=== PATIENT | male | born 1980 | race Caucasian/White ===

== ENCOUNTER 2020-08-01 00:17 | Outpatient (CLI) | payer BC, SELFPAY ==
[2020-08-02 00:20] LABS: SARS-CoV-2 RNA PCR Negative
== END 2020-08-01 00:18 | disposition home or self-care (01) ==
LOC: ANHCOVIDDT 00:18
PROVIDERS: PCP Family Medicine; Visit Provider Plastic Surgery
DX: Z01.812 Encounter for preprocedural laboratory examination (principal); Z20.822 Contact with and (suspected) exposure to COVID-19
CPT/HCPCS: C9803; U0003; U0005

== ENCOUNTER 2020-08-05 00:40 | Day surgery (SDC) | payer BC, SELFPAY ==
[2020-07-29 09:20] VITALS: BMI 27.3
[2020-08-05] VITALS (9 sets, daily range): BP systolic 122–141; BP diastolic 61–95; PULSE 75–98; RESP 12–20; TEMP 36.2–36.6; O2SAT 96–100
--- NOTE | ~2020-08-05 | NM_ITS ---
EXAMINATION: NM sentinel node w imaging EXAM DATE: 08/05/2020 08:16 INDICATION: Left upper arm melanoma. TECHNIQUE: 0.5 mCi Tc-99m Lymphoseek was injected in 4 aliquots immediately surrounding the left uppe r arm melanoma site. Planar images were obtained. IMPRESSION: [place] lymph node was identified in the left axilla, and this overlying region was ankit ed by the technologist. IMPRESSION: Left axillary sentinel lymph node identified. Reviewed, dictated and finalized at location A. TEACHER IMPRESSION: [place] lymph node was identified in the left axilla, and this ove rlying region was marked by the technologist.
[2020-08-05] MEDS: LACTATED RINGERS 1,000 ML 30 ML IV CONT (07:00)
--- NOTE | 2020-08-05 07:17 | WPDHPUPDATE1 ---
History and Physical Update Update Date/Time: 08/05/20 07:17 History and Physical has been reviewed, including an updated exam of the patient. There are NO changes in the patient's condition. Risks, benefits, and alternatives have been discussed and questions answered. Patient agrees to proceed with procedure.
--- NOTE | 2020-08-05 07:52 | SUR.PREOP ---
0710-PT TO NUCLEAR MEDICINE PER W/C.
--- NOTE | 2020-08-05 08:07 | SUR.PREOP ---
0800-RETURNED FROM NUCLEAR MEDICINE.
--- NOTE | 2020-08-05 08:11 | WPDANESEPPF ---
Anes - Initial Pre Proc Eval Procedure: Operation Date: 08/05/20 08:30 Proposed Procedures p Excision Melanoma Left Upper Arm with Martin Lymph Node Biopsy - Moody Steel MD Date/Time: 08/05/20 08:11 Surgeon: Moody Steel MD Pre Op Diagnosis: malignant melanoma left upper arm Patient Data Age: 39 Gender: M Height: 5 ft 11 in Weight: 88.6 kg Last Vital Signs Temp 97.2 F L 08/05/20 06:40 Pulse 98 08/05/20 06:40 Resp 20 08/05/20 06:40 BP 129/87 08/05/20 06:40 Pulse Ox 96 08/05/20 06:40 Allergies Allergy/AdvReac Type Severity Reaction Status Date / Time No Known Allergies Allergy Verified 08/05/20 06:53 Home Medications Medication Instructions Recorded Confirmed Type No Home Medications 03/02/20 08/05/20 History Patient hx anesthesia problems: none Family hx anesthesia problems: none [facility] Past Medical History Medical History (Updated 08/05/20 @ 08:10 by Ej Schmidt MD) Malignant melanoma of left upper arm Social History Social History (Updated 06/22/20 @ 11:01 by Keily Swift RN) Smoking packs per day: 0.5 Smoking cigarettes per day: 10.0 Years smoked: 8 Smoking pack-years: 4.00 Smoking status: Current every day smoker Tobacco type: cigarettes Alcohol intake: current Substance use: never Substance use type: does not use Living arrangements: with family Spiritual care concerns: No Anes - Eval Final PreProcedure Day of Procedure 08/05/20 08:11 Patient weight: overweight Heart: regular rate and rhythm Lungs: clear to auscultation Airway: Mallampati scale class II Neurological: alert and oriented Last oral intake: >/= 8 hours ASA classification: II Emergent: no Anesthetic plan: proceed Anesthesia type and monitoring: general LMA and standard monitoring Informed Consent: The patient's anesthetic plan and its attendant risks and benefits were discussed with the patient/family/POA. Questions were solicited and answers provided to the satisfaction of the patient/family/POA.
--- NOTE | 2020-08-05 08:19 | PM.OP ---
Procedure Note - Brief Procedure Note - Brief Date of procedure: 08/05/20 Pre-op diagnosis: malignant melanoma left upper arm Post-op diagnosis: same Procedure performed: Wide excision of melanoma (B. 0.9 mm) left upper arm with intermediate repair 9 cm and sentinel lymph node biopsy. Anesthesia: GLMA Surgeon: Moody Steel MD Entry Level: jimbo Estimated blood loss (mL): 5 Tourniquet time (min): 0 Drains: No Packing: No Pathology: yes Complications: No immediate complications Condition: stable Disposition: same day
[2020-08-05] MEDS: LIDO 1%/EPINEPHRINE 1:100,000 50 ML VIAL 10 ML INFILTRATE (08:24)
--- NOTE | 2020-08-05 09:08 | SUR.OPER ---
Left axillary sentinel lymph node sent fresh for permanent with KHANH Patel and received in pathology by Lexii
--- NOTE | 2020-08-05 09:16 | SUR.OPER ---
Left upper arm melanoma sent fresh with KHANH Patel and received in pathology by Lexii.
--- NOTE | 2020-08-05 09:46 | P.OP_ITS ---
Procedure Note - Detailed Date of procedure: 08/05/20 Pre-op diagnosis: malignant melanoma left upper arm Post-op diagnosis: same Procedure performed: 3 cm wide excision of malignant melanoma B[place]low thickness 0.9 mm left upper arm with intermediate repair 9 cm. [place] lymph node biopsy the left axilla Description of procedure: The patient was sent to nuclear medicine this morning. The single left axillary lymph node was identified. He was returned to the holding area where the melanoma site on the left upper arm was marked and the marking in the left axilla from nuclear Medicine was noted. He was rolled to the operating room were he was placed supine on the operating table. A time-out was held and confirmed. He was given general anesthesia with an LMA. The left upper chest, shoulder and left arm were prepped and draped in usual fashion. The probe was brought up and the site generally identified to be under the pectoralis muscle. The previous biopsy site on the biceps was marked with a 1 cm margin around any aspect of the scar. This area was widely infiltrated with 1% lidocaine with epinephrine. Attention was then turned to the left axilla and the incision made radially. The dissection was carried through the subcutaneous tissue to the axillary fascia. This was incised. The target lymph node was easily identified with the probe. The dissection was carried bluntly through the axillary fat pad exposing the lymph node. This was pink and light vora and approximately 1 to 1/2 cm in diameter. It was carefully dissected until a couple of sites were divided between vessel clips and the lymph node was removed. There was no bleeding. Other bleeding points from the dissection were cauterized. The wound was closed with 3-0 Vicryl suture in the superficial fascia and dermis. The skin was closed with a running intradermal 3-0 Monocryl. The lesion from the forearm was taken off with a full-thickness excision as marked. This was taken off down to the fascia however a large traversing vein was left intact. No cutaneous nerves were identified. The wound margins were elevated off the deep fascia with digital dissection. The wound closed easily with the 3-0 Vicryl in the superficial fascia and dermis. The skin was closed with a running intradermal 3-0 Monocryl. Light dressings were applied ant the patient was extubated and transported to the recovery room in stable condition. Anesthesia: GLMA Surgeon: Moody Steel MD Admissions Counselor: Robert Estimated blood loss (mL): 5 Tourniquet time (min): 0 Drains: No Packing: No Pathology: yes Complications: No immediate complications Condition: stable Disposition: same day
[2020-08-05] MEDS: oxyCODONE HCL (*CRX) 5 MG TAB IR PO (11:01)
[2020-08-05] MEDS: fentaNYL CITRATE INJ (*CRX) 100 MCG/2 ML VIAL 25 MCG IV PUSH (11:06)
== END 2020-08-05 12:00 | disposition home or self-care (01) ==
PROVIDERS: PCP Family Medicine; Visit Provider Plastic Surgery
PROC: (CPT 11603; principal; 2020-08-05 08:30)
DX: C43.62 Malignant melanoma of left upper limb, including shoulder (principal); F17.210 Nicotine dependence, cigarettes, uncomplicated
CPT/HCPCS: 11603; 12034; 38525; 78195; 88305; 88342; A9270; A9520; C1713; C9803; J1170; J2001; J2250; J2405; J2704; J3010; J7120; U0003; U0005

== ENCOUNTER → 2021-07-09 00:18 | Outpatient (CLI) | payer BC, SELFPAY ==
[2021-07-10 16:52] LABS: SARS-CoV-2 RNA PCR Negative
== END ==
PROVIDERS: PCP Family Medicine; Visit Provider Orthopaedic Surgery
DX: Z01.812 Encounter for preprocedural laboratory examination (principal); Z20.822 Contact with and (suspected) exposure to COVID-19
CPT/HCPCS: C9803; U0003; U0005

== ENCOUNTER 2021-07-12 00:57 | Day surgery (SDC) | payer BC, SELFPAY ==
[2021-07-08 12:41] VITALS: BMI 27.9
--- NOTE | 2021-07-08 12:47 | PC.NURSE ---
Report to the Outpatient Waiting Room, entrance under the green pavilion located off [facility], at time 1200 on date 07/12/21. OR Time: 1400. - You will be asked a series of questions to screen for COVID 19 for your protection. - A mask is required within the hospital. - No visitors are allowed at this time. Preoperative COVID Testing Requirements: No COVID Test needed if: (proof is required; if not received patient will have Rapid Test prior to entry) - Patient has received COVID Vaccine at least 14 days prior to procedure date or - Patient has positive COVID test result within last 90 days of surgery date. COVID Test needed if above criteria is not met If not COVID vaccinated a COVID test must be conducted within 72 hours of surgery and patient is asked to isolate self from time of testing until procedure. You will go to the [employer] [facility] for your COVID testing. The [employer] [facility] Testing site is located at the corner of [address] [facility]. COVID TEST 07/09 AT 0850 You will only be called if COVID results are positive and your surgeon may reschedule your elective surgery date. Patients may have clear liquids (water, carbonated beverages, clear teas, apple juice) until 3 hours prior to surgery with a maximum of 20 ounces. - No food from midnight until time of surgery Take the following medications with a SIP of water the morning of surgery: PAIN PILL (IF NEEDED) Medications to discontinue per physician:N/A Date to take last dose: N/A Please no make-up, nail syriac, hairspray, perfume, deodorant, or body powder the day of surgery. No jewelry (including any body piercings) or valuables the day of surgery, leave them at home. Please take a shower or bath the night before, or the morning of, surgery with an antibacterial soap. Wear comfortable, loose fitting clothing. Children are encouraged to wear pajamas. - Jewelry must be removed prior to entering the operating room. Rings and piercings that are not removed may be cut off. - The hospital will not accept responsibility for valuables. - Please leave all valuables, including medications, at home the day of surgery. If you are going home after surgery, a licensed full service vending driver must drive you home. - NO public transportation without another adult. - We recommend that an adult stay with you for 24 hours following discharge. - We also recommend that you do not drive, make important decision, drink alcoholic beverages, or take any drugs that were not prescribed by your health care provider for at least 24 hours after your discharge time. Follow any additional instructions given to you from your surgeon. Telephone instructions given to YOLANDE VILLALPANDO and asked if any additional questions and then verbalized understanding. Patient advised to call surgeon office or pre surgery nurse liaison [phone] if any additional questions.
[2021-07-12] VITALS (9 sets, daily range): BP systolic 104–130; BP diastolic 68–89; PULSE 71–100; RESP 13–18; TEMP 36.3–36.6; O2SAT 94–99
--- NOTE | ~2021-07-12 | XR_ITS ---
EXAMINATION: XR surgery orthopedic DATE: 07/12/2021 15:16 INDICATION: ORIF left ankle fracture TECHNIQUE: 3 fluoroscopic spot images of the left ankle were obtained during procedure performed by Alvino Damon. Radiologist was not present for the imaging or procedure. The amount of fluoroscopy time use d during this procedure was 0.5 minutes. COMPARISON: None. FINDINGS: Clinical reduction internal fixation of a lateral malleolar fracture with interfragmentary screw and lateral plate and screw fixation. Alignment appears near-anatomic. Minimal likely postoperative intra -articular gas. Left tibiotalar joint. Joint spaces are otherwise normal. IMPRESSION: 1. Near-anatomic alignment post open reduction internal fixation of a lateral malleolar fracture. Reviewed, dictated and finalized at location B. ALLMENT LOAN COLLECTOR IMPRESSION: 1. Near-anatomic alignment post open reduction internal fixation of a lateral m alleolar fracture.
--- NOTE | ~2021-07-12 | XR_ITS ---
EXAMINATION: XR chest 1V portable DATE: 07/12/2021 15:44 INDICATION: Aspiration. TECHNIQUE: A single frontal view of the chest was obtained. COMPARISON: None. FINDINGS: There is mild atelectasis in the lower lung zones. No pleural effusion or pneumothorax. The heart size is normal. Surgical clips overlie left axilla. IMPRESSION: 1. Mild atelectasis in the lower lung zones. Reviewed, dictated and finalized at location A. AL SYSTEM TESTING MAINTAINER
[2021-07-12] MEDS: KETOROLAC 15 MG/ML VIAL (*BKC) IV PUSH (12:25)
--- NOTE | 2021-07-12 12:33 | P.PNAN_ITS ---
Anes - Initial Pre Proc Eval Procedure: Operation Date: 07/12/21 14:00 Proposed Procedures p Open Reduction Internal Fixation Left Ankle - Kevyn Damon MD Date/Time: 07/12/21 12:33 Surgeon: Kevyn Damon MD Pre Op Diagnosis: Fx Left Ankle Patient Data Age: 40 Gender: M Height: 1.8 m Weight: 89 kg Last Vital Signs Temp 36.6 C 07/12/21 12:25 Pulse 93 07/12/21 12:25 Resp 16 07/12/21 12:25 BP 119/77 07/12/21 12:25 Pulse Ox 98 07/12/21 12:25 Allergies Allergy/AdvReac Type Severity Reaction Status Date / Time No Known Allergies Allergy Verified 07/12/21 12:00 Home Medications Medication Instructions Recorded Confirmed Type hydrocodone 5 mg-acetaminophen 325 1 tablet PO Q4H PRN #30 tablet 06/28/21 07/12/21 Rx mg tablet Patient hx anesthesia problems: none Family hx anesthesia problems: none Results Review: All pre-operative results and documents have been reviewed as part of the pre-operative evaluation. [facility] Past Medical History Medical History (Updated 07/06/21 @ 13:20 by Kevyn Damon MD) Bimalleolar fracture of left ankle Malignant melanoma of left upper arm Surgical History Surgical History History of knee surgery Family History Family History Father Family history of lung cancer Other Hypertension Social History Social History Smoking packs per day: 0.5 Smoking cigarettes per day: 10.0 Years smoked: 12 Smoking pack-years: 6.00 Smoking status: Current every day smoker Tobacco type: cigarettes Smokeless tobacco user: chewing tobacco Alcohol intake: current Drinks per week: 6 Substance use: never Substance use type: does not use Living arrangements: with roommate(s) Spiritual care concerns: No Anes - Eval Final PreProcedure Day of Procedure 07/12/21 12:33 Patient weight: overweight Heart: regular rate and rhythm Lungs: clear to auscultation and normal air movement Airway: Mallampati scale class II Neurological: alert and oriented Last oral intake: >/= 8 hours ASA classification: II Emergent: no Anesthetic plan: proceed Anesthesia type and monitoring: general LMA and standard monitoring Results Review: All pre-operative results and documents have been reviewed as part of the pre-operative evaluation. Informed Consent: The patient's anesthetic plan and its attendant risks and benefits were discussed with the patient/family/POA. Questions were solicited and answers provided to the satisfaction of the patient/family/POA.
--- NOTE | 2021-07-12 12:33 | WPDANESPNB ---
Anes - Peripheral Nerve Block Date/Time: 07/12/21 12:33 I have discussed with the patient/family/POA the placement of a peripheral nerve block for post-operative pain management, including associated risks, benefits, complications, and side effects. Alternative methods of post-operative analgesia were detailed. Questions were solicited and answers provided to the satisfaction of the patient/family/POA. Time-Out: A pre-procedural Time-Out was completed immediately before starting the procedure and confirmed: Patient Identification, Site, Procedure, Patient Position and the Availability of Requisite Equipment. Clinical Indications: Acute post-operative pain management requested by the operative surgeon. Nerve Block Insertion Note Anes-nerve block: posterior fossa sciatic left and adductor canal left Patient position: supine (for adductor canal) and other (right lateral for popliteal) Skin prep: chlorhexidine Needle: 22 gauge, stimulating, insulated echogenic needle. Needle length: 80 mm Technique: nerve stimulation lost at (mA) (for popliteal lost at 0.2) and ultrasound Injectate: bupivacaine 0.5% with epi 5 mcg/ml (20 mL for popliteal, 10 mL for adductor canal (no epi)) Observations: tolerated well Complications: none Procedure start time:: 1400 Procedure end time:: 1406
[2021-07-12] MEDS: LACTATED RINGERS 1,000 ML 30 ML IV CONT ×2 (12:59→15:36)
--- NOTE | 2021-07-12 13:40 | WPDHPUPDATE1 ---
History and Physical Update Update Date/Time: 07/12/21 13:40 History and Physical has been reviewed, including an updated exam of the patient. There are NO changes in the patient's condition. Risks, benefits, and alternatives have been discussed and questions answered. Patient agrees to proceed with procedure.
[2021-07-12] MEDS: ceFAZolin 2 GM/D5W 50 ML 2 GM/50 ML BAG IVPB (14:08)
--- NOTE | 2021-07-12 15:42 | P.OP_ITS ---
Procedure Note - Detailed Date of Procedure 07/12/21 Pre-op Diagnosis Fx Left Ankle Post-op Diagnosis same Procedure Performed ORIF left ankle Surgeon Kevyn Damon MD Safety Clothing And Equipment Developer Paige Mendosa Anesthesia general and regional Description of Procedure The patient was identified and proper site identified. In the preoperative holding area, the anesthesia team performed a left lower extremity block. He was then taken to the operating room and transferred to the or table placing him supine taking care to pad his torso and extremities. After general anesthetic induction and intubation, a nonsterile tourniquet was placed high on the left thigh. Left lower extremity is position, prepped and draped in the usual sterile fashion. The extremity was exsanguinated and tourniquet was inflated to 300 millimeters of mercury remaining up for 45 minutes. Longitudinal incision was made over the distal fibula. Subcutaneous tissue sharply dissected down to the fibula and hemostasis was carried out throughout the procedure. The fracture site was identified, cleared of debris and then was able to be anatomically reduced. It was secured with a three five cortical screw in lag fashion. An anatomic plate was then used used to further stabilize the construct in a neutralization mode placed laterally. This was applied with fluoroscopic visualization so that the joint was not penetrated. Overall this gave an anatomic reduction when viewed on the AP, mortise and lateral views.. Syndesmosis was stable once the plate had been secured. The wound was irrigated with sterile saline. Get edges reapproximated with 3-0 Stratafix and lucia. Sterile dressing was applied the tourniquet was released. A well-padded stirrup type splint was fashion with the ankle in a neutral position. He received perioperative antibiotics. Estimated blood loss was negligible. There were no known surgical complications. He was extubated taken to recovery area in stable condition. Estimated Blood Loss 10 Tourniquet Time 55 Drains No Packing No Pathology none sent Complications No immediate complications Condition stable Disposition PACU
[2021-07-12] MEDS: fentaNYL CITRATE INJ (*CRX) 100 MCG/2 ML VIAL 25 MCG IV PUSH (16:09)
[2021-07-12] MEDS: oxyCODONE HCL (*CRX) 5 MG TAB IR PO (17:14)
== END 2021-07-12 17:30 | disposition home or self-care (01) ==
PROVIDERS: PCP Family Medicine; Visit Provider Orthopaedic Surgery
PROC: (CPT 27792; principal; 2021-07-12 14:00)
DX: S82.842A Displaced bimalleolar fracture of left lower leg, initial encounter for closed fracture (principal); G89.18 Other acute postprocedural pain; X50.0XXA Overexertion from strenuous movement or load, initial encounter; F17.210 Nicotine dependence, cigarettes, uncomplicated; F17.220 Nicotine dependence, chewing tobacco, uncomplicated
CPT/HCPCS: 27792; 64445; 64447; 71045; A9270; C1713; C9803; J0330; J0690; J1885; J2250; J2405; J3010; J7120; U0003; U0005

== ENCOUNTER 2021-07-27 09:51 | Outpatient (CLI) | payer BC, SELFPAY ==
--- NOTE | ~2021-07-27 | US_ITS ---
US venous doppler [facility] DATE: 07/27/2021 10:30 INDICATION: Calf pain. Patient is status post recent open reduction internal fixation of lateral mall eolar fracture and has been in a cast. TECHNIQUE: Real-time imaging, color flow imaging and Doppler analysis COMPARISON: None FINDINGS: The left greater saphenous, common femoral profundofemoral, femoral, popliteal, posterior t ibial and peroneal veins are patent, with vascular color flow signal, augmentation and compression. Thrombus is identified within the soleus deep vein. IMPRESSION: S[place] deep vein thrombosis Dr. Manrique telephoned the report to Dr. Kevyn Damon on 07/27/2021 at 1042 hours Reviewed, dictated and finalized at Location A. Reviewed, dictated and finalized at location A. R INCIDENT ANALYST
== END 2021-07-27 09:52 | disposition home or self-care (01) ==
LOC: ANHIMG 09:56
PROVIDERS: PCP Family Medicine; Visit Provider Orthopaedic Surgery
DX: I82.462 Acute embolism and thrombosis of left calf muscular vein (principal)
CPT/HCPCS: 93971

== ENCOUNTER 2021-09-20 10:00 | Outpatient (RCR) | payer BC, SELFPAY ==
--- NOTE | 2021-08-30 17:33 | PTOPEVAL ---
PHYSICAL THERAPY EVALUATION AND PLAN OF CARE Thank you for referring Nikunj Ordonez to [facility].? The patient is scheduled to be seen for therapy? 2x/week for 3 weeks. Please review, sign, date and return this plan of care RAJAN. I agree with and certify that the following plan of care is medically necessary. Referring Physician Date Attending Provider: Wild Lopez APN Evaluation Outpatient Past Medical History Musculoskeletal History Hx Crutches or Walker Use Yes: CRUTCHES Query Text:If Yes, Enter Crutches, Walker, or Both in the Comment Hx Fractures Yes: LT ANKLE Hx Orthopedic Surgery Yes: BILAT KNEE SCOPE Integumentary History Hx Other Skin Disorders Yes: Melanoma left arm ( EXCISED) Other History Hx Cancer Yes: Melanoma left arm. Diagnosis left bimalleolar fx with ORIF Onset 07/12/21 Subjective Information left ORIF procedure on 07/12/21. Query Text:As Reported By Patient/ States he is doing well. Family Working his way away from using crutches but using the walking boot Self Report Pain Assessment Left Ankle(s) Reported Pain Level 2 Pain Description Aching Pain Frequency Acute,Intermittent Lowest Pain Intensity 2 Greatest Pain Intensity 4 Pain Score Pain Score 2: Self Report Interventions Used Interventions Used By Clinicians Exercise Lower Extremity Range of Motion Ankle/Foot Range of Motion Left Ankle Dorsiflexion With Knee Extension 8 Range of Motion - Active Ankle Plantarflexion Range of Motion - 40 Active Query Text: Ankle Eversion Range of Motion - Active 7 Ankle Inversion Range of Motion - Active 22 Lower Extremity Muscle Strength Testing Hip Strength Left Hip Flexion Strength 4 Good Hip Extension Strength 4 Good Hip Abduction Strength 4 Good Knee Strength Left Knee Flexion Strength 3+ Fair + Knee Extension Strength 3+ Fair + Ankle Strength Left Ankle Dorsiflexion Strength 4- Good - Ankle Plantarflexion Strength 3+ Fair + Ankle Eversion Strength 4 Good Ankle Inversion Strength 3 Fair Gait Assessment Ambulation Assistive Devices Crutches Weight Bearing Status - Left As Tolerated Weight Bearing Status - Right Full Maintains Weight Bearing Status Yes Ambulation Ability Independent Additional Ambulation Comments with single crutch, without boot/shoe on left foot: patient very cautious to bear weight and uses flat foot
--- NOTE | 2021-09-20 10:28 | PTOPEVAL ---
PHYSICAL THERAPY DISCHARGE NOTE Thank you for referring Nikunj Ordonez to [facility].? Please review, sign, date and return this plan of care RAJAN. I agree with and certify that the following plan of care is medically necessary. Referring Physician Date Attending Provider: Wild Lopez APN Discharge Diagnosis left bimalleolar fx with ORIF Onset 07/12/21 Subjective Information States that he has been Query Text:As Reported By Patient/ feeling a lot better. Using Family tennis ball on the plantar fascia and that is helping to loosen up. States the main thing he feels when walking is a tightness across the front of the ankle that is just a mildly uncomfortable. Self Report Pain Assessment Left Ankle(s) Reported Pain Level 2 Pain Score Pain Score 2: Self Report Interventions Used Interventions Used By Clinicians Exercise Lower Extremity Range of Motion Ankle/Foot Range of Motion Left Ankle Dorsiflexion With Knee Extension 10 Range of Motion - Active Ankle Plantarflexion Range of Motion - 52 Active Query Text: Ankle Eversion Range of Motion - Active 18 Ankle Inversion Range of Motion - Active 30 Lower Extremity Muscle Strength Testing Hip Strength Left Hip Flexion Strength 5 Normal Hip Extension Strength 5 Normal Hip Abduction Strength 5 Normal Knee Strength Left Knee Flexion Strength 5 Normal Knee Extension Strength 5 Normal Ankle Strength Left Ankle Dorsiflexion Strength 5 Normal Ankle Plantarflexion Strength 5 Normal Ankle Eversion Strength 5 Normal Ankle Inversion Strength 4 Good Ankle Strength Comments 20/20 unilateral heel raises on the left Gait Assessment Gait Pattern Assessment Gait Pattern No Deviations/Normal Stair Climbing Assessment Stair Climbing Assessment Stair Climbing Assistive Devices None Weight Bearing Status - Left Full Weight Bearing Status - Right Full Technique Alternating Steps Stair Climbing Direction Both Up and Down Stair Climbing Ability Independent Stair Climbing Comments mild antalgia noted to descending secondary to mild limitation in left dorsiflexion General Exercise General Exercises Side Left Exercise Location ankle Exercise Type Active,Resistive,Stabilization ,Stretching
== END 2021-09-20 15:12 | disposition home or self-care (01) ==
LOC: ANHPT 10:00
PROVIDERS: PCP Family Medicine; Referring Provider Nurse Practitioner; Visit Provider Nurse Practitioner
DX: S82.842D Displaced bimalleolar fracture of left lower leg, subsequent encounter for closed fracture with routine healing (principal)
CPT/HCPCS: 97110; 97112; 97116; 97140; 97161

== ENCOUNTER 2025-02-23 21:22 | Emergency (ER) | payer BC, SELFPAY ==
--- NOTE | ~2025-02-23 | XR_ITS ---
HISTORY: ANKLE PAIN X4 DAYS, NO INJURY COMPARISON: None TECHNIQUE: 3 views of the right ankle were performed FINDINGS: Incidental notation is made of os trigonum. No acute fracture or dislocation. No significant soft tissue swelling. The ankle mortise is preserved. Bone mineralization is age-appropriate. IMPRESSION: No acute fracture. Os trigonum possibly leading to ankle impingement for which clinical correlation is needed. Reviewed, dictated and finalized at location A. IMPRESSION: No acute fracture. Os trigonum possibly leading to ankle impingement for which clinical correlatio n is needed.
[2025-02-23 21:23] VITALS: BP 134/95; PULSE 116; RESP 18; TEMP 36.6; O2SAT 99
--- NOTE | 2025-02-24 00:13 | ED_ITS ---
HPI - Extremity Injury (Lower) General Chief Complaint: Extremity Injury, Lower Stated Complaint: right ankle injury Time Seen by Provider: 02/24/25 00:06 Source: patient Mode of arrival: ambulatory Limitations: no limitations History of Present Illness HPI Narrative: This is a 44 year old male that presents to the ER for right calf and ankle pain. Ongoing over the last 4 days. No recent injuries. Reports recent travel to floor. Reports history of DVT. Denies chest pain or shortness of breath. Related Data Home Medications ?Medication ?Instructions ?Recorded ?Confirmed ?Last Taken ?Type No Home Medications 02/23/25 02/23/25 Unknown History Allergies Allergy/AdvReac Type Severity Reaction Status Date / Time No Known Allergies Allergy Verified 02/23/25 21:26 Review of Systems 2 Review of Systems: All systems reviewed & are unremarkable except as noted in HPI and below PMFSH Past Medical History Medical History (Updated 02/24/25 @ 01:14 by Jennifer Salvador PA-C) DVT (deep venous thrombosis) Malignant melanoma of left upper arm Surgical History Surgical History Bimalleolar fracture of left ankle ORIF July 12, 2021 History of knee surgery Family History Family History Father Family history of lung cancer Other Hypertension Social History Social History Smoking packs per day: 0.5 Smoking cigarettes per day: 10.0 Years smoked: 12 Smoking pack-years: 6.00 Smoking status: Current some day smoker Tobacco type: cigarettes Smokeless tobacco user: chewing tobacco Smoking end date: 07/12/21 Alcohol intake: current Drinks per week: 6 Substance use: never Substance use type: does not use Living arrangements: with roommate(s) Occupation/Education: occupation Spiritual care concerns: No Exam 2 Narrative: GENERAL: Well-appearing, well-nourished, and in no acute distress. HEAD: Normocephalic, atraumatic. EYES: EOMI. CHEST: No respiratory distress. HEART: Regular rate EXTREMITIES: Normal range of motion. No edema or erythema. Normal DP pulse. SKIN: Warm, dry, no rash. NEURO: No focal deficits. Alert and oriented x3. PSYCH: Normal mood and affect Course Vital Signs Vital signs: Vital Signs Temperature 97.8 F 02/23/25 21:23 Pulse Rate 116 H 02/23/25 21:23 Respiratory Rate 18 02/23/25 21:23 Blood Pressure 134/95 H 02/23/25 21:23 Pulse Oximetry 99 02/23/25 21:23 Oxygen Delivery Room Air 02/23/25 21:23 Temperature 97.8 F 02/23/25 21:23 Pulse Rate 95 02/24/25 00:54 Respiratory Rate 16 02/24/25 00:54 Blood Pressure 115/84 02/24/25 00:54 Pulse Oximetry 98 02/24/25 00:54 Oxygen Delivery Room Air 02/23/25 21:23 MDM - Extremity Injury (Lower) MDM Narrative Medical decision making narrative: Patient presents the emergency department for right calf and ankle pain. Ongoing over the last couple of days. History of DVT. No recent injuries or trauma. Patient is neurovascularly intact. Tachycardic upon arrival, this normalized without intervention. Ankle x-ray showing on os trigonum possibly leading to ankle impingement. No acute osseous abnormalities. Patient set up for ultrasound in the morning. Presumptively given dose of Lovenox due to history and current symptoms. Instructed on close follow-up with PCP for further management Differential Diagnosis Differential diagnosis: Likely ankle sprain and strain and other (arthritis, DVT) Lab Data Attestation: I reviewed the patient's lab results. 02/24/25 00:51 02/24/25 00:51 Labs: Lab Results 02/24/25 Range/Units 00:51 WBC 8.0 (4.5-10.0) K/mm3 RBC 4.29 L (4.6-6.20) M/mm3 Hgb 13.8 L (14.0-18.0) g/dL Hct 41.7 L (42.0-52.0) % MCV 97.2 (80-100) fl MCH 32.2 (26-34) pg MCHC 33.1 (32-36) g/dl RDW 14.0 (11.5-14.5) % Plt Count 160 (150-375) k/mm3 MPV 10.4 (7.4-10.4) fl Immature Gran % (Auto) 0.2 (0-0.5) % Neut % (Auto) 53.0 (45.5-73.1) % Lymph % (Auto) 32.8 (18.3-44.2) % [place] % (Auto) 9.9 H (2.6-8.5) % Eos % (Auto) 3.5 (0-4.4) % Baso % (Auto) 0.6 (0.2-1.2) % Lymph # (Auto) 2.63 (0.9-3.2) K/mm3 [place] # (Auto) 0.8 H (0.1-0.6) K/mm3 Eos # (Auto) 0.3 (0-0.3) K/mm3 Baso # (Auto) 0.1 (0.0-0.1) K/mm3 Abs Immat Gran (auto) 0.02 (0.00-0.031) K/mm3 Absolute Neuts (auto) 4.2 (1.3-6.7) K/mm3 Absolute Nucleated RBC 0.000 (0.0-0.012) K/mm3 Nucleated RBC % 0.0 (0.0-0.2) % PT Pending INR Pending APTT Pending D-Dimer Pending Sodium 136 L (137-145) mmol/L Potassium 4.2 (3.4-5.0) mmol/L Chloride 105 (98-107) mmol/L Carbon Dioxide 23 (22-30) mmol/L Anion Gap 8 (4-12) mmol/L BUN 16 (9-20) mg/dL Creatinine 0.82 (0.7-1.3) mg/dL Estim Creat Clear Calc 108 ml/min Estimated GFR > 60 (59 - ) Glucose 97 (65-110) mg/dL Calcium 9.2 (8.4-10.2) mg/dL Imaging Data Radiologist's impression: ITS Impressions Ankle X-Ray 02/23/25 22:09 IMPRESSION: No acute fracture. Os trigonum possibly leading to ankle impingement for which clinical correlation is needed. Critical Care Time Critical Care Time Critical Care Time: No Discharge Plan Discharge Clinical Impression: Right calf pain Patient Disposition: Home Condition: Stable Instructions: Deep Vein Thrombosis (ED) Additional Instructions: Return to the emergency department if you experience chest pain, shortness of breath, or any other symptoms that are concerning to you You are scheduled for an US of your right leg this morning at 7:30. Return to [facility] Follow up with your primary doctor Patient Language: Greenlandic Prescriptions: No Action No Home Medications Follow-up/Referrals: PHYSICIAN,VOCATIONAL TRAINING TEACHER [Non-Staff] -
[2025-02-24 00:54] VITALS: BP 115/84; PULSE 95; RESP 16; O2SAT 98
[2025-02-24 01:05] LABS: Hematocrit 41.7 % (42.0-52.0); Hemoglobin 13.8 g/dL (14.0-18.0); Immature Granulocyte Percent A 0.2 % (0-0.5); Lymphocytes Absolute Auto 2.63 K/mm3 (0.9-3.2); Mean Corpuscular HGB Conc 33.1 g/dl (32-36); Mean Corpuscular Hemoglobin 32.2 pg (26-34); Mean Corpuscular Volume 97.2 fl (80-100); Nucleated Red Blood Cells Absolute Auto 0.000 K/mm3 (0.0-0.012); Nucleated Red Blood Cells Perc 0.0 % (0.0-0.2); Platelet Count Result 160 k/mm3 (150-375); Red Blood Count 4.29 M/mm3 (4.6-6.20); White Blood Count 8.0 K/mm3 (4.5-10.0)
[2025-02-24 01:11] LABS: Anion Gap 8 mmol/L (4-12); Blood Urea Nitrogen 16 mg/dL (9-20); Calcium 9.2 mg/dL (8.4-10.2); Carbon Dioxide 23 mmol/L (22-30); Chloride 105 mmol/L (98-107); Estimated CRCL calculation 108 ml/min; Estimated Glomerular Filt Rate > 60; Glucose 97 mg/dL (65-110); Potassium 4.2 mmol/L (3.4-5.0); Sodium 136 mmol/L (137-145)
[2025-02-24 01:12] LABS: INR 0.9; Prothrombin Time 12.3 Seconds (11.1-14.7)
[2025-02-24 01:13] LABS: Partial Thromboplastin Time 27.6 Seconds (22.3-36.8)
[2025-02-24] MEDS: ENOXAPARIN 100 MG/ML SYRINGE 90 MG SUB-Q (01:36)
== END 2025-02-24 01:35 | disposition home or self-care (01) ==
PROVIDERS: Emergency Provider Physician Assistant; PCP Family Medicine
DX: M79.661 Pain in right lower leg (principal); Z86.718 Personal history of other venous thrombosis and embolism; Z85.820 Personal history of malignant melanoma of skin
CPT/HCPCS: 36415; 73610; 80048; 85025; 85380; 85610; 85730; 96372; 99283; J1650

== ENCOUNTER 2025-02-24 07:14 | Outpatient (CLI) | payer BC, SELFPAY ==
--- NOTE | ~2025-02-24 | US_ITS ---
EXAMINATION: US venous doppler LE RT DATE: 02/24/2025 08:02 INDICATION: Right lower limb pain TECHNIQUE: Grayscale ultrasound images without and with compression and Doppler ultrasound images of the right lower extremity veins were obtained. COMPARISON: None. FINDINGS: The proximal to mid right greater saphenous vein are patent and compressible. There is noncompressibl e occlusive appearing thrombus in the right greater saphenous vein below the level of the knee The vi sualized portions of right common femoral vein, profunda (deep) femoral vein, femoral vein, popliteal vein, peroneal trunk, posterior tibial veins, peroneal veins and gastrocnemius vein are patent. Smal l Paez's cyst. IMPRESSION: 1. No deep venous thrombosis in the right lower limb. 2. Superficial venous thrombosis in the [id number] right greater saphenous vein. Reviewed, dictated and finalized at location A. IMPRESSION: 1. No deep venous thrombosis in the right lower limb. 2. Superficial venous thrombosis in the [id number] right greater saphenous vein.
== END 2025-02-24 07:15 | disposition home or self-care (01) ==
PROVIDERS: PCP Family Medicine; Visit Provider Physician Assistant
DX: M79.661 Pain in right lower leg (principal); I82.811 Embolism and thrombosis of superficial veins of right lower extremity
CPT/HCPCS: 93971